=== PATIENT | female | born 1945 | race Caucasian/White ===

== ENCOUNTER 2016-11-20 13:48 | Emergency (ER) | payer MEDICARE, OTHER ==
[2016-11-20] MEDS ORDERED: IBUPROFEN 800 MG TABLET PO STA (14:15)
[2016-11-20] MEDS ORDERED: IBUPROFEN 800 MG TABLET PO ONE (14:31)
[2016-11-20] MEDS ORDERED: NITROFURANTOIN MACRO 100 MG CAPSULE PO STA (14:46)
[2016-11-20] MEDS ORDERED: NITROFURANTOIN MACRO 100 MG CAPSULE PO ONE (14:52)
[2016-11-20] MEDS ORDERED: cefTRIAXone 1 GM in SODIUM CHLORIDE 0.9% MINIBAG 100 ML IV STA (15:24)
[2016-11-20] MEDS ORDERED: SODIUM CHLORIDE 0.9% 1,000 ML IV ONE (15:24)
[2016-11-20] MEDS ORDERED: cefTRIAXone 1 GM VIAL ONE (15:49)
== END 2016-11-20 16:42 | disposition home or self-care (01) ==
DX: N39.0 Urinary tract infection, site not specified (principal); E78.00 Pure hypercholesterolemia, unspecified; Z87.891 Personal history of nicotine dependence
CPT/HCPCS: 36415; 80053; 81001; 83605; 83690; 85025; 87077; 87086; 87181; 96365; 99283; 99284; A9270

== ENCOUNTER 2016-11-28 15:24 | Outpatient (CLI) | payer MEDICARE, OTHER | END 2016-11-28 15:25 | disposition home or self-care (01) | DX: N12 Tubulo-interstitial nephritis, not specified as acute or chronic (principal) ==

== ENCOUNTER 2016-12-19 13:30 | Outpatient (CLI) | payer MEDICARE, OTHER | END 2016-12-19 13:31 | disposition home or self-care (01) | DX: M85.89 Other specified disorders of bone density and structure, multiple sites (principal) ==

== ENCOUNTER 2017-01-27 10:14 | Outpatient (CLI) | payer MEDICARE, OTHER ==
--- NOTE | 2017-01-28 12:53 | Mammography Report ---
DIGITAL SCREENING MAMMOGRAM: 01/27/2017 CLINICAL INDICATION: A 71-year-old for screening. COMPARISON: 12/2015, 11/2014, 08/2013, 06/2012, 06/2011, 03/2010, 03/2009, 03/2008. TECHNIQUE: Routine CC and MLO projections were obtained of the breasts. FINDINGS: The breasts again demonstrate fatty replacement bilaterally. Coarse and punctate, typical ly benign calcifications are present. No suspicious masses, clustered microcalcifications, or region s of architectural distortion are identified. IMPRESSION: BENIGN FINDINGS. RECOMMENDATION: Routine annual screening unless otherwise clinically indicated. BIRADS CATEGORY 2 - BENIGN FINDINGS. STANDARD QUALIFYING STATEMENTS 1. This examination was reviewed with the aid of Computer-Aided Detection (CAD). 2. A negative or benign imaging report should not delay biopsy if clinically suspicious findings are present. Consider surgical consultation if warranted. More than 5% of cancers are not identified by i maging. 3. Dense breasts may obscure an underlying neoplasm. JOB #: [id number] EXT JOB #:[id number]
== END 2017-01-27 10:15 | disposition home or self-care (01) ==
LOC: DI.N 10:14
PROVIDERS: ATTEND Physician Assistant Medical
DX: Z12.31 Encounter for screening mammogram for malignant neoplasm of breast (principal)
CPT/HCPCS: 77067

== ENCOUNTER 2017-02-03 08:03 | Outpatient (CLI) | payer MEDICARE, OTHER ==
[2017-02-03 13:39] LABS: ALBUMIN/GLOBULIN RATIO 1.3 (1.0-2.2); BILIRUBIN,TOTAL 0.6 mg/dL (0.2-1.0); BUN - BLOOD UREA NITROGEN 16 mg/dL (6-20); CALCIUM 9.2 mg/dL (8.5-10.3); CARBON DIOXIDE - CO2 24 mmol/L (21-32); CHLORIDE 106 mmol/L (101-111); CHOL/HDL RATIO 2.9 (<4.4); CHOLESTEROL 167 mg/dL; GFR - MDRD 55 (>89); GLUCOSE 123 mg/dL (70-100); HDL CHOLESTEROL 58 mg/dL; POTASSIUM 4.2 mmol/L (3.5-5.0); SODIUM 139 mmol/L (135-145); TOTAL PROTEIN 6.9 g/dL (6.7-8.2); TRIGLYCERIDES 255 mg/dL; VLDL CHOLESTEROL 51 mg/dL
== END 2017-02-03 08:04 | disposition home or self-care (01) ==
LOC: LAB.WCP 08:03
PROVIDERS: ATTEND Physician Assistant Medical
DX: E78.5 Hyperlipidemia, unspecified (principal)
CPT/HCPCS: 36415; 80053; 80061

== ENCOUNTER 2017-05-18 07:53 | Outpatient (CLI) | payer MEDICARE, OTHER ==
[2017-05-18 15:03] LABS: HEMOGLOBIN A1C 0.48 g/dL
== END 2017-05-18 07:54 | disposition home or self-care (01) ==
LOC: LAB.WCP 07:53
PROVIDERS: ATTEND Physician Assistant Medical
DX: R73.9 Hyperglycemia, unspecified (principal)
CPT/HCPCS: 36415; 80048; 83036

== ENCOUNTER 2017-11-25 08:19 | Outpatient (CLI) | payer MEDICARE, OTHER ==
[2017-11-25 12:52] LABS: BASOPHILS % (AUTO) 0.4 %; EOSINOPHILS # (AUTO) 0.2 10^3/uL (0.0-0.7); EOSINOPHILS % (AUTO) 4.2 %; LYMPHOCYTES # (AUTO) 1.8 10^3/uL (1.5-3.5); LYMPHOCYTES % (AUTO) 29.5 %; MEAN CORPUSCULAR HEMOGLOBIN 26.8 pg (27.0-31.0); MEAN CORPUSCULAR HGB CONC 32.7 g/dL (32.0-36.0); MEAN PLATELET VOLUME 8.3 fL (7.9-10.8); MONOCYTES # (AUTO) 0.6 10^3/uL (0.0-1.0); MONOCYTES % (AUTO) 10.9 %; NEUTROPHILS # (AUTO) 3.3 10^3/uL (1.5-6.6); PLT - PLATELET COUNT 250 10^3/uL (130-450); RED BLOOD COUNT 4.49 10^6/uL (4.20-5.40); RED CELL DISTRIBUTION WIDTH 16.4 % (12.0-15.0); WHITE BLOOD COUNT 5.9 x10^3/uL (4.8-10.8)
[2017-11-25 12:56] LABS: ALBUMIN 3.6 g/dL (3.2-5.5); ALBUMIN/GLOBULIN RATIO 1.3 (1.0-2.2); ALKALINE PHOSPHATASE 70 IU/L (42-121); ALT ALANINE AMINOTRANSFERASE 19 IU/L (10-60); AST ASPARTATE AMINOTRANSFERASE 20 IU/L (10-42); BILIRUBIN,TOTAL 0.4 mg/dL (0.2-1.0); BUN - BLOOD UREA NITROGEN 18 mg/dL (6-20); CALCIUM 8.4 mg/dL (8.5-10.3); CARBON DIOXIDE - CO2 25 mmol/L (21-32); CHLORIDE 105 mmol/L (101-111); CHOL/HDL RATIO 2.8 (<4.4); CHOLESTEROL 170 mg/dL; GFR - MDRD 54 (>89); GLUCOSE 110 mg/dL (70-100); HDL CHOLESTEROL 60 mg/dL; LDL CHOLESTEROL,CALCULATED 71 mg/dL; LDL/HDL RATIO 1.2 (<4.4); SODIUM 138 mmol/L (135-145); TOTAL PROTEIN 6.4 g/dL (6.7-8.2); VLDL CHOLESTEROL 39 mg/dL
== END 2017-11-25 08:20 | disposition home or self-care (01) ==
LOC: LAB.WCP 08:19
PROVIDERS: ATTEND Physician Assistant Medical
DX: E78.5 Hyperlipidemia, unspecified (principal); I10 Essential (primary) hypertension
CPT/HCPCS: 36415; 80053; 80061; 83721; 85025

== ENCOUNTER 2018-02-16 06:11 | Day surgery (SDC) | payer MEDICARE, OTHER ==
[2018-02-16] MEDS ORDERED: LACTATED RINGERS 1,000 ML IV ONE (06:54)
[2018-02-16] MEDS ORDERED: GLUCAGON 1 MG/ML VIAL ONE (07:30)
[2018-02-16] MEDS ORDERED: MIDAZOLAM 2 MG/2 ML VIAL IVP ONE (07:30)
[2018-02-16] MEDS ORDERED: fentaNYL 250 MCG/5 ML VIAL IVP ONE (07:30)
[2018-02-16 08:49] VITALS: BP 116/67
== END 2018-02-16 06:12 | disposition home or self-care (01) ==
LOC: SDS 06:11
PROVIDERS: ATTEND Surgery
PROC: 3E0H8GC Introduction of Other Therapeutic Substance into Lower GI, Via Natural or Artificial Opening Endoscopic (ICD-10-PCS; 2018-02-16)
PROC: 0DBN8ZZ Excision of Sigmoid Colon, Via Natural or Artificial Opening Endoscopic (ICD-10-PCS; principal; 2018-02-16 07:30)
DX: Z12.11 Encounter for screening for malignant neoplasm of colon (principal); D12.5 Benign neoplasm of sigmoid colon; K57.30 Diverticulosis of large intestine without perforation or abscess without bleeding; D17.5 Benign lipomatous neoplasm of intra-abdominal organs; I10 Essential (primary) hypertension; K21.9 Gastro-esophageal reflux disease without esophagitis; F32.9 Major depressive disorder, single episode, unspecified
CPT/HCPCS: 45381; 45384; J3010; J7120; 88305

== ENCOUNTER 2018-02-23 10:04 | Outpatient (CLI) | payer MEDICARE, OTHER ==
--- NOTE | 2018-02-25 13:36 | Mammography Report ---
Procedure Date: 02/23/2018 Accession Number: [id number] / [id number] Procedure: MGN - Screening Mammo Dig Bilat CPT Code: FULL RESULT: EXAM: Screening Mammo Dig Bilat DATE: 02/23/2018 10:19 AM CLINICAL HISTORY: 72-year-old for screening TECHNIQUE: Bilateral CC and MLO views were obtained. COMPARISON: 01/27/2017, 12/31/2015, 11/27/2014, 08/30/2013, 07/16/2012, 06/25/2011, 04/09/2010 FINDINGS: The breasts demonstrate diffuse fatty replacement bilaterally. Coarse and punctate, typically benign calcifications are present. No suspicious masses, clustered microcalcifications, or regions of architectural distortion are identified. IMPRESSION: Benign findings RECOMMENDATION: Routine annual screening unless otherwise clinically indicated. BIRADS CATEGORY 2: Benign findings STANDARD QUALIFYING STATEMENTS: 1. This examination was reviewed with the aid of Computer-Aided Detection (CAD). 2. A negative or benign imaging report should not delay biopsy if clinically suspicious findings are present. Consider surgical consultation if warrented. More than 5% of cancers are not identified by imaging. 3. Dense breasts may obscure an underlying neoplasm.
== END 2018-02-23 10:05 | disposition home or self-care (01) ==
LOC: DI.N 10:04
PROVIDERS: ATTEND Physician Assistant Medical
DX: Z12.31 Encounter for screening mammogram for malignant neoplasm of breast (principal)
CPT/HCPCS: 77067

== ENCOUNTER 2018-06-21 07:32 | Outpatient (CLI) | payer MEDICARE, OTHER ==
[2018-06-21 12:29] LABS: ALBUMIN 3.7 g/dL (3.2-5.5); ALBUMIN/GLOBULIN RATIO 1.2 (1.0-2.2); ALKALINE PHOSPHATASE 85 IU/L (42-121); ALT ALANINE AMINOTRANSFERASE 21 IU/L (10-60); AST ASPARTATE AMINOTRANSFERASE 22 IU/L (10-42); BILIRUBIN,TOTAL 0.7 mg/dL (0.2-1.0); BUN - BLOOD UREA NITROGEN 14 mg/dL (6-20); CALCIUM 8.8 mg/dL (8.5-10.3); CARBON DIOXIDE - CO2 26 mmol/L (21-32); CHLORIDE 105 mmol/L (101-111); CHOL/HDL RATIO 2.7 (<4.4); CHOLESTEROL 156 mg/dL; CREATININE 0.9 mg/dL (0.4-1.0); GFR - MDRD 61 (>89); GLUCOSE 116 mg/dL (70-100); HDL CHOLESTEROL 57 mg/dL; LDL CHOLESTEROL,CALCULATED 44 mg/dL; LDL/HDL RATIO 0.8 (<4.4); SODIUM 139 mmol/L (135-145); TOTAL PROTEIN 6.7 g/dL (6.7-8.2); VLDL CHOLESTEROL 55 mg/dL
== END 2018-06-21 07:33 | disposition home or self-care (01) ==
LOC: LAB.WCP 07:32
PROVIDERS: ATTEND Physician Assistant Medical
DX: E78.5 Hyperlipidemia, unspecified (principal)
CPT/HCPCS: 36415; 80053; 80061; 83721

== ENCOUNTER 2019-01-25 08:00 | Outpatient (CLI) | payer MEDICARE, OTHER ==
[2019-01-25 12:31] LABS: BASOPHILS # (AUTO) 0.1 10^3/uL (0.0-0.1); BASOPHILS % (AUTO) 0.9 %; EOSINOPHILS # (AUTO) 0.2 10^3/uL (0.0-0.7); EOSINOPHILS % (AUTO) 2.9 %; HGB - HEMOGLOBIN 12.7 g/dL (12.0-16.0); LYMPHOCYTES # (AUTO) 1.6 10^3/uL (1.5-3.5); LYMPHOCYTES % (AUTO) 27.7 %; MEAN CORPUSCULAR HEMOGLOBIN 29.5 pg (27.0-31.0); MEAN CORPUSCULAR HGB CONC 32.7 g/dL (32.0-36.0); MEAN CORPUSCULAR VOLUME 90.1 fL (81.0-99.0); MEAN PLATELET VOLUME 8.9 fL (7.9-10.8); MONOCYTES # (AUTO) 0.5 10^3/uL (0.0-1.0); MONOCYTES % (AUTO) 9.1 %; NEUTROPHILS # (AUTO) 3.4 10^3/uL (1.5-6.6); NEUTROPHILS % (AUTO) 59.4 %; PLT - PLATELET COUNT 279 10^3/uL (130-450); RED BLOOD COUNT 4.32 10^6/uL (4.20-5.40); RED CELL DISTRIBUTION WIDTH 13.3 % (12.0-15.0); WHITE BLOOD COUNT 5.7 x10^3/uL (4.8-10.8)
[2019-01-25 12:37] LABS: ALBUMIN/GLOBULIN RATIO 1.5 (1.0-2.2); ALKALINE PHOSPHATASE 77 IU/L (42-121); ALT ALANINE AMINOTRANSFERASE 16 IU/L (10-60); AST ASPARTATE AMINOTRANSFERASE 22 IU/L (10-42); BILIRUBIN,TOTAL 0.6 mg/dL (0.2-1.0); BUN - BLOOD UREA NITROGEN 14 mg/dL (6-20); CARBON DIOXIDE - CO2 23 mmol/L (21-32); CHLORIDE 106 mmol/L (101-111); CHOL/HDL RATIO 2.7 (<4.4); CHOLESTEROL 149 mg/dL; CREATININE 0.9 mg/dL (0.4-1.0); GFR - MDRD 61 (>89); GLUCOSE 111 mg/dL (70-100); HDL CHOLESTEROL 56 mg/dL; LDL CHOLESTEROL,CALCULATED 64 mg/dL; LDL/HDL RATIO 1.1 (<4.4); SODIUM 139 mmol/L (135-145); TOTAL PROTEIN 6.7 g/dL (6.7-8.2); VLDL CHOLESTEROL 29 mg/dL
== END 2019-01-25 08:01 | disposition home or self-care (01) ==
LOC: LAB.WCP 08:00
PROVIDERS: ATTEND Physician Assistant Medical
DX: E78.5 Hyperlipidemia, unspecified (principal); I10 Essential (primary) hypertension
CPT/HCPCS: 36415; 80053; 80061; 83721; 85025

== ENCOUNTER 2019-03-09 08:47 | Outpatient (CLI) | payer MEDICARE, OTHER ==
--- NOTE | 2019-03-09 10:15 | Mammography Report ---
Reason: SCREENING MAMMO Procedure Date: 03/09/2019 Accession Number: [id number] / [id number] Procedure: MGN - Screening Mammo Dig Bilat CPT Code: FULL RESULT: EXAM: Screening Mammo Dig Bilat DATE: 03/09/2019 9:22 AM CLINICAL HISTORY: Screening encounter. No reported risk factors. TECHNIQUE: (B) - Bilateral CC and MLO views were obtained. COMPARISON: 02/23/2018 through 11/27/2014. PARENCHYMAL PATTERN: (A) - The breast(s) demonstrate(s) scattered fibroglandular densities. FINDINGS: There are bilateral coarse typically benign calcifications. There are no suspicious masses, calcifications, or areas of distortion. IMPRESSION: Benign findings. BI-RADS category 2. RECOMMENDATION: (ANNUAL) - Recommend routine annual screening mammography. BI-RADS CATEGORY: (2) - Benign Findings. STANDARD QUALIFYING STATEMENTS: 1. This examination was not reviewed with the aid of Computer-Aided Detection (CAD). 2. A negative or benign imaging report should not preclude biopsy if clinically suspicious findings are present. 3. Dense breasts may obscure an underlying neoplasm. 4. This examination was reviewed without the aid of 3D breast imaging (tomosynthesis).
== END 2019-03-09 08:48 | disposition home or self-care (01) ==
LOC: DI.N 08:47
DX: Z12.31 Encounter for screening mammogram for malignant neoplasm of breast (principal)
CPT/HCPCS: 77067

== ENCOUNTER 2019-03-16 08:50 | Outpatient (CLI) | payer MEDICARE, OTHER ==
--- NOTE | 2019-03-17 09:05 | DEXA Report ---
Reason: BONE DISEASE Procedure Date: 03/16/2019 Accession Number: [id number] / [id number] Procedure: DEX - Dexa Spine and/or Hip CPT Code: FULL RESULT: EXAM: Dexa Spine and/or Hip DATE: 03/16/2019 9:18 AM CLINICAL HISTORY: BONE DISEASE TECHNIQUE: Dual energy x-ray absorptiometry (DXA) was performed on a eri[employer] System. Regions measured are the AP Spine, femoral neck, and if needed forearm. COMPARISON: 12/19/2016. In accordance with the International Society for Clinical Densitometry (ISCD) guidelines, data from previous exams may be reanalyzed using current recommendations and techniques. This is done to allow a more accurate basis for comparison with the current study. FINDINGS: The data for the lumbar spine is as follows: BMD (g/cm/cm) T-SCORE Z-SCORE REGION L1 0.891 -2.0 -1.0 L2 1.004 -1.6 -0.7 L3 1.069 -1.1 -0.1 L4 1.036 -1.4 -0.4 TOTAL 1.004 -1.5 -0.5 NOTE: All evaluable vertebrae are used for classification The data for the hip is as follows: BMD (g/cm/cm) T-SCORE Z-SCORE REGION Neck 0.650 -2.8 -1.4 TOTAL 0.778 -1.8 -0.7 NOTE: The femoral neck or total proximal femur, whichever is lowest, is used for classification. DXA RESULTS SUMMARY: Spine SCAN DATE AGE BMD CHANGE VS CHANGE VS PREVIOUS PREVIOUS % 2/16/2019 [age] 1.004 0.036* 3.7* 12/19/2016 [age] 0[age]968 * Denotes significant change at the 95% confidence level. Denotes dissimilar scan types or analysis methods. DXA RESULTS SUMMARY: Hip SCAN DATE AGE BMD CHANGE VS CHANGE VS PREVIOUS PREVIOUS % 2/16/2019 [age] 0.778 -0.014 -1.8 12/19/2016 [age] 0.792 * Denotes significant change at the 95% confidence level. Denotes dissimilar scan types or analysis methods. IMPRESSION: THE WHO CLASSIFICATION BASED ON THE INTERNATIONAL REFERENCE STANDARD IS OSTEOPOROSIS. THE FRACTURE RISK IS HIGH. RECOMMENDATION: Patients with diagnosis of osteoporosis or osteopenia should have regular bone mineral density assessment. For those eligible for Medicare, routine testing is allowed once every 2 years. Testing frequency can be increased for patients who have rapidly progressing disease or for those who are receiving medical therapy to restore bone mass. COMMENT: World Health Organization (WHO) definitions for osteoporosis and osteopenia: NORMAL BMD: T-score at -1.0 or higher, fracture risk is low OSTEOPENIA BMD: T-score between -1.0 and -2.5, fracture risk is increased. OSTEOPOROSIS BMD: T-score at -2.5 or lower, fracture risk is high. National Osteoporosis Foundation recommends: 1. Obtain adequate dietary calcium (at least 1200 mg per day) and vitamin D (400-800 international units per day). 2. Participate, as appropriate, in regular weightbearing and muscle-strengthening exercise. 3. Avoid tobacco use and reduce alcohol and caffeine intake. 4. For more detailed information see the website at www.NOF.org.
== END 2019-03-16 08:51 | disposition home or self-care (01) ==
LOC: DI 08:50
PROVIDERS: ATTEND Physician Assistant Medical
DX: M81.0 Age-related osteoporosis without current pathological fracture (principal)
CPT/HCPCS: 77080

== ENCOUNTER 2020-03-08 09:14 | Outpatient (CLI) | payer MEDICARE, OTHER ==
[2020-03-08 12:33] LABS: ALBUMIN 4.6 g/dL (3.2-5.5); ALBUMIN/GLOBULIN RATIO 1.8 (1.0-2.2); ALKALINE PHOSPHATASE 62 IU/L (42-121); ALT ALANINE AMINOTRANSFERASE 19 IU/L (10-60); AST ASPARTATE AMINOTRANSFERASE 22 IU/L (10-42); BILIRUBIN,TOTAL 0.7 mg/dL (0.2-1.0); BUN - BLOOD UREA NITROGEN 18 mg/dL (6-20); CALCIUM 8.8 mg/dL (8.5-10.3); CARBON DIOXIDE - CO2 26 mmol/L (21-32); CHLORIDE 105 mmol/L (101-111); CHOL/HDL RATIO 2.5 (<4.4); CHOLESTEROL 168 mg/dL; CREATININE 1.1 mg/dL (0.4-1.0); GLUCOSE 119 mg/dL (70-100); HDL CHOLESTEROL 67 mg/dL; LDL CHOLESTEROL,CALCULATED 71 mg/dL; LDL/HDL RATIO 1.1 (<4.4); SODIUM 137 mmol/L (135-145); TOTAL PROTEIN 7.2 g/dL (6.7-8.2); VLDL CHOLESTEROL 30 mg/dL
[2020-03-08 12:46] LABS: HEMOGLOBIN A1C 0.63 g/dL
== END 2020-03-08 23:59 | disposition home or self-care (01) ==
LOC: LAB.WCP 09:14
PROVIDERS: ATTEND Physician Assistant Medical
DX: E78.5 Hyperlipidemia, unspecified (principal); R73.9 Hyperglycemia, unspecified
CPT/HCPCS: 36415; 80053; 80061; 83036; 83721

== ENCOUNTER 2020-05-04 09:22 | Outpatient (CLI) | payer MEDICARE, OTHER ==
--- NOTE | 2020-05-07 12:08 | Mammography Report ---
BILATERAL DIGITAL SCREENING MAMMOGRAM 3D/2D: 05/04/2020 CLINICAL: Routine screening. Comparison is made to exams dated: 03/09/2019 mammogram, 02/23/2018 mammogram, and 01/27/2017 mammogram - [facility]. There are scattered fibroglandular elements in both breasts. There are benign calcifications in both breasts. No significant masses, calcifications, or other findings are seen in either breast. There has been no significant interval change. IMPRESSION: BENIGN There is no mammographic evidence of malignancy. A 1 year screening mammogram is recommended. This exam was interpreted at Station ID: [id number]. NOTE: For mammograms, a report in lay terms will be sent to the patient. Approximately 15% of breast malignancies will not be visualized mammographically. In the management of a palpable breast mass, a negative mammogram must not discourage biopsy of a clinically suspicious lesion. Electronically Signed By: Tj Keith M.D. ddp/penrad:05/04/2020 10:32:30 ACR BI-RADS Category 2: Benign Finding(s) 3342F PARENCHYMAL PATTERN: (A) - The breast(s) demonstrate(s) scattered fibroglandular densities. BI-RADS CATEGORY: (2) - 2 RECOMMENDATION: (ANNUAL) - Recommend routine annual screening mammography. [id number] 1 year screening LATERALITY: (B)
== END 2020-05-04 09:23 | disposition home or self-care (01) ==
LOC: DI.N 09:22
DX: Z12.31 Encounter for screening mammogram for malignant neoplasm of breast (principal)
CPT/HCPCS: 77063; 77067

== ENCOUNTER 2020-09-07 08:00 | Outpatient (CLI) | payer MEDICARE, OTHER | END 2020-09-07 23:59 | LOC: LAB.R 08:00 | PROVIDERS: ATTEND Physician Assistant Medical | DX: R10.32 Left lower quadrant pain (principal) | CPT/HCPCS: 87077; 87086; 87181 ==

== ENCOUNTER 2020-09-07 14:59 | Outpatient (CLI) | payer MEDICARE, OTHER ==
[2020-09-07] MEDS ORDERED: IOVERSOL 320 50 ML VIAL ONE (15:17)
[2020-09-07] MEDS ORDERED: IOVERSOL 320 100 ML VIAL IVP ONE (15:17)
[2020-09-07 15:26] LABS: BASOPHILS % (AUTO) 0.4 %; EOSINOPHILS # (AUTO) 0.1 10^3/uL (0.0-0.7); HGB - HEMOGLOBIN 13.9 g/dL (12.0-16.0); LYMPHOCYTES # (AUTO) 2.3 10^3/uL (1.5-3.5); LYMPHOCYTES % (AUTO) 23.5 %; MEAN CORPUSCULAR HEMOGLOBIN 29.8 pg (27.0-31.0); MEAN CORPUSCULAR HGB CONC 31.6 g/dL (32.0-36.0); MEAN CORPUSCULAR VOLUME 94.4 fL (81.0-99.0); MEAN PLATELET VOLUME 9.8 fL (7.9-10.8); MONOCYTES # (AUTO) 0.9 10^3/uL (0.0-1.0); NEUTROPHILS # (AUTO) 6.4 10^3/uL (1.5-6.6); NEUTROPHILS % (AUTO) 65.8 %; PLT - PLATELET COUNT 277 10^3/uL (130-450); RED BLOOD COUNT 4.66 10^6/uL (4.20-5.40); RED CELL DISTRIBUTION WIDTH 13.7 % (12.0-15.0); WHITE BLOOD COUNT 9.7 x10^3/uL (4.8-10.8)
[2020-09-07 15:33] LABS: ALBUMIN 4.2 g/dL (3.2-5.5); ALBUMIN/GLOBULIN RATIO 1.2 (1.0-2.2); BILIRUBIN,TOTAL 0.7 mg/dL (0.2-1.0); CALCIUM 9.2 mg/dL (8.5-10.3); CREATININE 0.9 mg/dL (0.4-1.0); TOTAL PROTEIN 7.7 g/dL (6.7-8.2)
--- NOTE | 2020-09-07 17:28 | CT Report ---
PROCEDURE: Abdomen/Pelvis W INDICATIONS: ABD PAIN, LLQ CONTRAST: IV CONTRAST: Optiray 320 ml: 100 PO CONTRAST: Optiray 320 ml50 TECHNIQUE: After the administration of contrast, 5 mm thick sections acquired from the diaphragms to the sym physis. 5 mm thick coronal and sagittal reformats were acquired. For radiation dose reduction, the following was used: automated exposure control, adjustment of mA and/or kV according to patient size . COMPARISON: None. FINDINGS: Image quality: Excellent. ABDOMEN: Lung bases: Lung bases are clear. Heart size is normal. Solid organs: Liver and spleen are normal in size and enhancement. Gallbladder appears previously r esected Biliary system is non dilated. Pancreas enhances normally. No adrenal nodules. Kidneys de monstrate normal size and enhancement, without right-sided hydronephrosis or nephrolithiasis bilatera lly. There is, however, left-sided mild to moderate hydronephrosis and hydroureter that extends infer iorly to the bladder margin. At the far distal ureter, including the "submucosal tunnel" portion of t he distal left ureter no calculus is seen. There is mild soft tissue prominence in the area of the lo west margin of the ureter at the bladder wall.. Peritoneum and bowel: Bowel loops demonstrate normal wall thickness and caliber. No free fluid or a ir. Nodes and vessels: No retroperitoneal or mesenteric adenopathy by size criteria. Aorta and inferior vena cava are normal in size. Miscellaneous: No ventral hernias. PELVIS: Genitourinary: Bladder wall thickness is normal. Miscellaneous: No inguinal hernias or adenopathy. Bones: No suspicious bony lesions. No vertebral body compression fractures. IMPRESSION: The hydronephrosis and hydroureter on the left is a worrisome finding given the absence of a identified ureteral or bladder calculus. The appearance could be secondary to inflammation from recent passage of a stone but a far distal ureteral urothelial neoplasm remains a potential cause. Pl ease correlate clinically. Follow-up confirmation of resolution of left-sided hydronephrosis is recom mended, generally by ultrasound, and if the obstructive appearance persists urology consultation woul d be recommended to assess for urothelial neoplasm at the distal left ureter. Reviewed by: Jaswinder Polanco MD on 09/07/2020 5:26 PM PST Approved by: Jaswinder Polanco MD on 09/07/2020 5:26 PM PST Station ID: [id number]
== END 2020-09-07 15:00 | disposition home or self-care (01) ==
LOC: DI 14:59
PROVIDERS: ATTEND Physician Assistant Medical
DX: R10.32 Left lower quadrant pain (principal); N13.30 Unspecified hydronephrosis; N13.4 Hydroureter
CPT/HCPCS: 36415; 74177; 80053; 83690; 85025; Q9967; 87086

== ENCOUNTER 2020-10-16 13:49 | Outpatient (CLI) | payer MEDICARE, OTHER ==
--- NOTE | 2020-10-16 16:19 | Ultrasound Report ---
PROCEDURE: Retroperitoneal INDICATIONS: LLQ ABDOMINAL PAIN TECHNIQUE: Real-time scanning was performed of the retroperitoneal organs, with image documentation. COMPARISON: CT abdomen/pelvis 09/07/2020 reviewed.. FINDINGS: Incidental note is made of prominent fatty infiltration throughout the liver. Kidneys: Kidneys are normal in size. Right kidney measures 10.7 cm long; left kidney measures 9.9 c m long. Right renal cortical thickness is 1.6 cm; left renal cortical thickness is 1.4 cm. No solid masses, hydronephrosis, or obstructive nephrolithiasis bilaterally. There is a 5 mm calcification at the lower right kidney collecting system, nonobstructive, and several possible vascular calcificatio ns noted at the renal sinus region on the left. Pancreas: Visualized portions of the pancreas are sonographically normal. Aorta: Visualized aorta is normal in caliber at 3 cm or less. Iliac arteries: Proximal common iliac arteries are normal in caliber at 2.5 cm or less. IVC: Intrahepatic inferior vena cava is patent. Miscellaneous: No free abdominal fluid. Prevoid bladder volume is 354 cc, postvoid residual is 0. N ote is made of bilateral ureteral jets. CT scanning also would allow detection of a ureteral stone. IMPRESSION: A definite source of left lower quadrant pain is not identified. CT scanning may be warranted if dive rticulitis is clinically suspected. Note is made of relatively prominent fatty infiltration throughout the liver. Reviewed by: Jaswinder Polanco MD on 10/16/2020 4:17 PM PST Approved by: Jaswinder Polanco MD on 10/16/2020 4:17 PM PST Station ID: [id number]
== END 2020-10-16 13:50 | disposition home or self-care (01) ==
LOC: DI 13:49
PROVIDERS: ATTEND Physician Assistant Medical
DX: R10.32 Left lower quadrant pain (principal); K76.0 Fatty (change of) liver, not elsewhere classified

== ENCOUNTER 2021-03-28 08:00 | Outpatient (CLI) | payer MEDICARE, OTHER ==
[2021-03-28 13:38] LABS: ALBUMIN 3.8 g/dL (3.2-5.5); ALBUMIN/GLOBULIN RATIO 1.2 (1.0-2.2); ALKALINE PHOSPHATASE 60 IU/L (42-121); ALT ALANINE AMINOTRANSFERASE 17 IU/L (10-60); AST ASPARTATE AMINOTRANSFERASE 18 IU/L (10-42); BILIRUBIN,TOTAL 0.7 mg/dL (0.2-1.0); BUN - BLOOD UREA NITROGEN 17 mg/dL (6-20); CALCIUM 9.3 mg/dL (8.5-10.3); CARBON DIOXIDE - CO2 27 mmol/L (21-32); CHLORIDE 103 mmol/L (101-111); CHOL/HDL RATIO 2.8 (<4.4); CHOLESTEROL 196 mg/dL; GFR - MDRD 54 (>89); GLUCOSE 135 mg/dL (70-100); HDL CHOLESTEROL 69 mg/dL; LDL CHOLESTEROL,CALCULATED 90 mg/dL; LDL/HDL RATIO 1.3 (<4.4); SODIUM 140 mmol/L (135-145); TRIGLYCERIDES 186 mg/dL; VLDL CHOLESTEROL 37 mg/dL
== END 2021-03-28 23:59 | disposition home or self-care (01) ==
LOC: LAB.WCP 08:00
PROVIDERS: ATTEND Physician Assistant Medical
DX: E78.5 Hyperlipidemia, unspecified (principal)
CPT/HCPCS: 36415; 80053; 80061; 83721

== ENCOUNTER 2021-04-03 13:40 | Outpatient (CLI) | payer MEDICARE, OTHER ==
--- NOTE | 2021-04-03 15:32 | XRAY Report ---
PROCEDURE: Knee 3 View LT INDICATIONS: L KNEE PX TECHNIQUE: 3 views of the left knee(s) were acquired. COMPARISON: None. FINDINGS: Bones: No fractures or dislocations. Mild medial compartment joint space loss. Moderate patellofemo ral compartment joint space loss, subcortical cystic change, and marginal spurring. No suspicious bon y lesions. Soft tissues: Trace joint effusion. There are at least 4 amorphous, faint calcifications projecting p osterior and inferior to the knee joint, unlikely to be intra-articular. IMPRESSION: 1. 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 2. Trace, nonspecific joint effusion. 3. No fractures. Reviewed by: Corina Benedict MD on 04/03/2021 3:30 PM PDT Approved by: Corina Benedict MD on 04/03/2021 3:30 PM PDT Station ID: [id number]
== END 2021-04-03 13:41 | disposition home or self-care (01) ==
LOC: DI.N 13:40
PROVIDERS: ATTEND Physician Assistant Medical
DX: M17.12 Unilateral primary osteoarthritis, left knee (principal); M25.462 Effusion, left knee; R73.9 Hyperglycemia, unspecified
CPT/HCPCS: 36415; 83036

== ENCOUNTER 2021-05-21 10:20 | Outpatient (CLI) | payer MEDICARE, OTHER ==
--- NOTE | 2021-05-22 09:36 | Mammography Report ---
BILATERAL DIGITAL SCREENING MAMMOGRAM 3D/2D: 05/21/2021 CLINICAL: Routine screening. Comparison is made to exams dated: 05/04/2020 mammogram, 03/09/2019 mammogram, 02/23/2018 mammogram, 01/27 mammogram, 12/31/2015 mammogram, and 11/27/2014 mammogram - [facility]. There ar e scattered fibroglandular elements in both breasts. There are benign calcifications in both breasts. No significant masses, calcifications, or other findings are seen in either breast. There has been no significant interval change. IMPRESSION: BENIGN There is no mammographic evidence of malignancy. A 1 year screening mammogram is recommended. This exam was interpreted at Station ID: [id number]. NOTE: For mammograms, a report in lay terms will be sent to the patient. Approximately 15% of breast malignancies will not be visualized mammographically. In the management of a palpable breast mass, a negative mammogram must not discourage biopsy of a clinically suspicious lesion. Electronically Signed By: Tj Keith M.D. ddp/penrad:05/21/2021 12:56:34 ACR BI-RADS Category 2: Benign Finding(s) 3342F PARENCHYMAL PATTERN: (A) - The breast(s) demonstrate(s) scattered fibroglandular densities. BI-RADS CATEGORY: (2) - 2 RECOMMENDATION: (ANNUAL) - Recommend routine annual screening mammography. [id number] 1 year screening LATERALITY: (B)
== END 2021-05-21 10:21 | disposition home or self-care (01) ==
LOC: DI.N 10:20
DX: Z12.31 Encounter for screening mammogram for malignant neoplasm of breast (principal)

== ENCOUNTER 2021-05-30 07:00 | Outpatient (CLI) | payer MEDICARE, OTHER | END 2021-05-30 23:59 | disposition home or self-care (01) | LOC: LAB 07:00 | PROVIDERS: ATTEND Family Medicine | DX: R30.0 Dysuria (principal) | CPT/HCPCS: 87077; 87086; 87181 ==

== ENCOUNTER 2022-03-06 08:00 | Outpatient (CLI) | payer MEDICARE, OTHER | END 2022-03-06 08:01 | disposition home or self-care (01) | LOC: LAB.N 08:00 | PROVIDERS: ATTEND Physician Assistant Medical | DX: R30.0 Dysuria (principal) | CPT/HCPCS: 87077; 87086; 87181 ==

== ENCOUNTER 2022-05-03 11:48 | Outpatient (CLI) | payer MEDICARE, OTHER | END 2022-05-03 11:49 | disposition critical access hospital (66) | LOC: EMS 11:48 | DX: R42 Dizziness and giddiness (principal) | CPT/HCPCS: A0425; A0429 ==

== ENCOUNTER 2022-05-03 12:12 | Emergency (ER) | payer MEDICARE, OTHER ==
--- NOTE | 2022-05-03 12:57 | ED Physician Documentation ---
PD HPI FOCAL NEURO - Stated complaint Stated Complaint: VERTIGO - Chief complaint Chief Complaint: Neuro - History obtained from History obtained from: Patient - Additional information Additional information: 77-year-old woman with mild hypertension presents with resolved vertigo. She got out of bed at 8 this morning with it she felt like the room was spinning. And she felt a whooshing sound in her right ear that was not in time with her pulse. At this point the vertigo is gone. She still feels some fullness in the right ear. She denies weakness, numbness, tingling, diplopia, uncoordination. She notes that she saw her eye doctor recently and was having a symptom of a little veil in the inferolateral peripheral vision of her left eye. Her durable medical equipment repairer opined that her retina was normal and recommended check of her carotid arteries. Review of Systems Ten Systems: 10 systems reviewed and negative Constitutional: denies: Fever, Chills Ears: reports: Reviewed and negative Nose: reports: Reviewed and negative Throat: reports: Reviewed and negative Cardiac: reports: Reviewed and negative Respiratory: reports: Reviewed and negative PD PAST MEDICAL HISTORY - Past Medical History Cardiovascular: None Respiratory: None Endocrine/Autoimmune: None GI: None : None HEENT: None Psych: None Musculoskeletal: None Derm: None - Past Surgical History Past Surgical History: Yes General: Cholecystectomy /BOAT BUILDER: section - Present Medications Home Medications: Ambulatory Orders Medication Instructions Recorded Confirmed Simvastatin [Zocor] 0 mg PO DAILY 11/20/16 02/16/18 buPROPion [Wellbutrin Xl] 0 mg PO DAILY 11/20/16 11/20/16 Aspirin 325 mg PO DAILY 02/16/18 02/16/18 - Allergies Allergies/Adverse Reactions: Allergies Allergy/AdvReac Type Severity Reaction Status Date / Time No Known Drug Allergies Allergy Verified 05/03/22 12:25 - Social History Does the pt smoke?: No Smoking Status: Former smoker Does the pt drink ETOH?: No Does the pt have substance abuse?: No - Immunizations Immunizations are current?: Yes PD ED PE NORMAL - Vitals Vital signs reviewed: Yes - General General: Alert and oriented X 3, No acute distress - HEENT HEENT: PERRL, EOMI, Other (I am unable to elicit any nystagmus or abnormality of her extraocular movements. There is some noninfected fluid behind the right eardrum, left TM is normal.) - Neck Neck: Supple, no meningeal sign, No bony TTP, No bruit - Cardiac Cardiac: RRR, No murmur - Respiratory Respiratory: No respiratory distress, Clear bilaterally - Abdomen Abdomen: Non tender - Back Back: No CVA TTP, No spinal TTP - Derm Derm: Normal color, Warm and dry - Neuro Neuro: Alert and oriented X 3, Normal speech, Other (Normal ypxjff-[id number]-kxzh and fefu-ri-infj testing) Eye Opening: Spontaneous Motor: Obeys Commands Verbal: Oriented GCS Score: 15 - Psych Psych: Normal mood, Normal affect NIHSS - Time Time: 12:50 - Level of Consciousness Level of consciousness: (0) Alert, Keenly responsive LOC Questions: (0) Answers both Q's correct LOC Commands: (0) Performs both correctly - Gaze Best Gaze: (0) Normal - Visual Visual: (0) No loss - Facial Palsy Facial Palsy: (0) Normal, symmetrical movement - Motor Arms (both separate) Motor Arm (right): (0) No drift Motor Arm (left): (0) No drift - Motor Legs (both separate) Motor Leg (right): (0) No drift Motor Leg (left): (0) No drift - Limb Ataxia Limb Ataxia: (0) Absent - Sensory Sensory: (0) Normal - Best Language Best Language: (0) No aphasia - Dysarthria Dysarthria: (0) Normal - Extinction and Inattention (formally neg Extinction and inattention: (0) No abnormality - Total Score/Results Total Score/Result: 0 Results - Vitals Vitals: Vital Signs - 24 hr 05/03/22 05/03/22 12:18 15:32 Temperature 37.0 C 37.0 C Heart Rate 77 76 Respiratory 18 16 Rate Blood Pressure 141/80 H 138/80 H O2 Saturation 96 96 Oxygen O2 Source Room air - Labs Labs: Laboratory Tests 05/03/22 05/03/22 13:02 13:02 WBC 6.6 RBC 4.49 Hgb 10.3 L Hct 34.3 L MCV 76.4 L MCH 22.9 L MCHC 30.0 L RDW 17.1 H Plt Count 345 MPV 9.6 Neut # (Auto) 4.5 Lymph # (Auto) 1.5 Dukes # (Auto) 0.5 Eos # (Auto) 0.1 Baso # (Auto) 0.0 Absolute Nucleated RBC 0.00 Nucleated RBC % 0.0 Sodium 140 Potassium 4.4 Chloride 107 Carbon Dioxide 26 Anion Gap 7.0 BUN 17 Creatinine 0.9 Estimated GFR (MDRD) 61 L Glucose 140 H Calcium 8.9 PD MEDICAL DECISION MAKING - ED course ED course: 77-year-old woman with resolved vertigo associated with some right ear symptoms suggestive of a peripheral cause. That said she did not note any change with movement of her head while she was symptomatic. Given the recent suggestion that she have her carotids checked, CT angiography of the head and neck were done and normal. She was relatively asymptomatic here. Departure - Departure Disposition: 01 Home, Self Care Clinical Impression: Vertigo Anemia Qualifiers: Anemia type: unspecified type Qualified Code(s): D64.9 - Anemia, unspecified Serous otitis media Qualifiers: Chronicity: acute Laterality: right Recurrence: non-recurrent Qualified Code(s): H65.01 - Acute serous otitis media, right ear Condition: Good Record reviewed to determine appropriate education?: Yes Instructions: ED Vertigo Unspecified Comments: You are found today to be mildly anemic, this requires follow-up with your primary care physician for evaluation. The CT scans of your head and neck show no abnormality of the brain and no blockages or abnormalities of the blood vessels in your head or neck leading to your brain. Drink plenty of fluid and return if worse, Call your doctor to arrange a follow-up appointment, make the next available appointment. In the interim, return anytime if worse or if new symptoms develop. Discharge Date/Time: 05/03/22 15:32
[2022-05-03 13:11] LABS: BASOPHILS % (AUTO) 0.6 %; EOSINOPHILS # (AUTO) 0.1 10^3/uL (0.0-0.7); EOSINOPHILS % (AUTO) 1.5 %; HCT - HEMATOCRIT 34.3 % (37.0-47.0); HGB - HEMOGLOBIN 10.3 g/dL (12.0-16.0); LYMPHOCYTES # (AUTO) 1.5 10^3/uL (1.5-3.5); LYMPHOCYTES % (AUTO) 22.2 %; MEAN CORPUSCULAR HEMOGLOBIN 22.9 pg (27.0-31.0); MEAN CORPUSCULAR VOLUME 76.4 fL (81.0-99.0); MEAN PLATELET VOLUME 9.6 fL (7.9-10.8); MONOCYTES # (AUTO) 0.5 10^3/uL (0.0-1.0); MONOCYTES % (AUTO) 7.1 %; NEUTROPHILS # (AUTO) 4.5 10^3/uL (1.5-6.6); NEUTROPHILS % (AUTO) 68.4 %; PLT - PLATELET COUNT 345 10^3/uL (130-450); RED BLOOD COUNT 4.49 10^6/uL (4.20-5.40); RED CELL DISTRIBUTION WIDTH 17.1 % (12.0-15.0); WHITE BLOOD COUNT 6.6 x10^3/uL (4.8-10.8)
[2022-05-03 13:17] LABS: CALCIUM 8.9 mg/dL (8.5-10.3); CREATININE 0.9 mg/dL (0.4-1.0); POTASSIUM 4.4 mmol/L (3.5-5.0)
--- NOTE | 2022-05-03 14:22 | CT Report ---
PROCEDURE: ANGIO HEAD W/WO INDICATIONS: vertigo CONTRAST: IV CONTRAST: Optiray 320 ml: 80 PO CONTRAST: *NO PO CONTRAST TECHNIQUE: Precontrast 4.5 mm thick angled axial sections acquired from the foramen magnum to the vertex. Afte r the administration of intravenous contrast, 1 mm thick sections acquired through the [place] of [place] is. Postcontrast 4.5 mm thick sections then re-acquired from the foramen magnum to the vertex. 3-di mensional xuwplgo-muisbbxaj-nuceglcyrx (MIP) and/or volume rendering reformats were acquired of the c entral intracranial vasculature. For radiation dose reduction, the following was used: automated ex posure control, adjustment of mA and/or kV according to patient size. COMPARISON: None. FINDINGS: Image quality: Excellent. Anterior circulation: Intracranial internal carotid arteries demonstrate trace atherosclerotic calci fications without significant stenosis.. The flow within the paired anterior cerebral arteries is no rmal and symmetric. The flow within the middle cerebral arteries is normal and symmetric. The anter ior communicating artery is seen. No aneurysms are seen. Posterior circulation: Visualized portions of the vertebral arteries demonstrate normal caliber, and join to form a normal appearing basilar artery. A hypoplastic P1 segment of the right posterior cer ebral artery is seen with a dominant right posterior communicating artery, a normal variant. Flow wit hin the posterior cerebral arteries is otherwise normal and symmetric. No aneurysms are seen. CSF spaces: Ventricles are normal in size and shape. Basal cisterns are patent. No extra-axial flu id collections. Brain: No midline shift. No acute intracranial hemorrhage or mass effect. Baldwin-white matter interfa ce appears intact. Skull and face: Calvarium and facial bones appear intact, without suspicious lesions. Sinuses: Visualized sinuses and mastoids are clear. IMPRESSION: 1.No acute intracranial abnormality. 2.No hemodynamically significant arterial stenosis or occlusion within the major intracranial vessels . Reviewed by: Joe Harris MD on 05/03/2022 1:20 PM ANA Approved by: Joe Harris MD on 05/03/2022 1:20 PM ANA Station ID: [id number]
--- NOTE | 2022-05-03 14:26 | CT Report ---
PROCEDURE: ANGIO NECK W INDICATIONS: vertigo CONTRAST: IV CONTRAST: Optiray 320 ml: 80 PO CONTRAST: *NO PO CONTRAST TECHNIQUE: After the administration of intravenous contrast, 1.5 mm axial sections acquired from the aortic arch to the [place] of [place]. Coronal 3-D maximum intensity projection (MIP) and/or volume rendering ref ormats were then performed. For radiation dose reduction, the following was used: automated exposur e control, adjustment of mA and/or kV according to patient size. COMPARISON: None. FINDINGS: Image quality: Excellent. Carotid system: The left common carotid artery arises from the brachiocephalic trunk, a normal anato fred variant. The great vessels demonstrate a conventional anatomy as they arise from the aortic arch. The origins of the common carotid arteries appear patent. The common carotid arteries demonstrate normal calibers and courses. The bifurcation regions appear normal bilaterally. The internal caroti d arteries demonstrate normal caliber and course. Posterior circulation: Atherosclerotic calcifications are seen at the origin of the right vertebral artery without significant stenosis. The origins of the left vertebral artery appears patent. The mo re superior portions of the vertebral arteries demonstrate normal course and caliber. They join to f orm a normal appearing basilar artery. Soft tissues: Visualized neck soft tissues demonstrate no suspicious abnormalities. The thyroid is normal in size and there are no incidental findings. Bones: No suspicious bony lesions. Multilevel degenerative changes are seen in the spine. IMPRESSION: No hemodynamically significant stenosis or occlusion of the major arteries of the neck. The estimate of stenosis included in the report of the imaging study was calculated using the NASCET method Reviewed by: Joe Harris MD on 05/03/2022 1:25 PM ANA Approved by: Joe Harris MD on 05/03/2022 1:25 PM ANA Station ID: [id number]
[2022-05-03 15:33] VITALS: BP 138/80
== END 2022-05-03 15:32 | disposition home or self-care (01) ==
LOC: ED 12:12
DX: H65.01 Acute serous otitis media, right ear (principal); D64.9 Anemia, unspecified; I10 Essential (primary) hypertension; Z87.891 Personal history of nicotine dependence
CPT/HCPCS: 36415; 70496; 70498; 80048; 85025; 99282; 99284; Q9967

== ENCOUNTER 2022-05-22 08:00 | Outpatient (CLI) | payer MEDICARE, OTHER | END 2022-05-22 23:59 | disposition home or self-care (01) | LOC: LAB 08:00 | PROVIDERS: ATTEND Physician Assistant Medical | DX: R30.0 Dysuria (principal) | CPT/HCPCS: 87086; 87181 ==

== ENCOUNTER 2022-06-05 08:00 | Outpatient (CLI) | payer MEDICARE, OTHER ==
[2022-06-05 18:55] LABS: FECAL OCCULT BLOOD (FIT) NEGATIVE (NEGATIVE)
== END 2022-06-05 23:59 | disposition home or self-care (01) ==
LOC: LAB.R 08:00
PROVIDERS: ATTEND Physician Assistant Medical
DX: D50.9 Iron deficiency anemia, unspecified (principal)
CPT/HCPCS: 82274

== ENCOUNTER 2022-06-16 07:55 | Outpatient (CLI) | payer MEDICARE, OTHER ==
--- NOTE | 2022-06-16 21:05 | DEXA Report ---
PROCEDURE: Dexa Spine and/or Hip INDICATIONS: OSTEOPENIA TECHNIQUE: Dual energy x-ray absorptiometry (DXA) was performed on a Verifico System. Regions measur ed are the AP Spine, femoral neck, and if needed forearm. COMPARISON: DEXA 03/16/2019 FINDINGS: Lumbar Spine: Bone Mineral Density 1.07 g/cm/cm,T score -0.9, compared to -1.5 Left Hip: Bone Mineral Density 0.793 g/cm/cm,T score -1.7, compared to -1.8 Left Femoral Neck: Bone Mineral Density 0.637 g/cm/cm, T score -2.9, compared to -2.8 (T score greater or equal to -1.0: NORMAL) (T score from -1.1 to -2.4: OSTEOPENIA) (T score less than or equal to -2.5 to: OSTEOPOROSIS) Impression: Minimal progression of osteoporosis in the left femoral neck. Improved bone mineral density within th e lumbar spine. Patients with diagnosis of osteoporosis or osteopenia should have regular bone mineral density assess ment. For those eligible for Medicare, routine testing is allowed once every 2 years. Testing frequ ency can be increased for patients who have rapidly progressing disease or for those who are receivin g medical therapy to restore bone mass. Reviewed by: Karina Mcintyre MD on 06/16/2022 9:03 PM PDT Approved by: Karina Mcintyre MD on 06/16/2022 9:03 PM PDT Station ID: [id number]
== END 2022-06-16 07:56 | disposition home or self-care (01) ==
LOC: DI 07:55
PROVIDERS: ATTEND Family Medicine
DX: M81.0 Age-related osteoporosis without current pathological fracture (principal)

== ENCOUNTER 2022-10-02 17:15 | Outpatient (CLI) | payer MEDICARE, OTHER | END 2022-10-02 17:30 | disposition home or self-care (01) | LOC: LAB.N 17:15 | PROVIDERS: ATTEND Physician Assistant Medical | DX: N30.00 Acute cystitis without hematuria (principal) | CPT/HCPCS: 87086; 87181 ==

== ENCOUNTER 2022-10-08 06:28 | Day surgery (SDC) | payer MEDICARE, OTHER ==
[2022-10-08] MEDS ORDERED: LACTATED RINGERS 1,000 ML IV ONE (06:31)
[2022-10-08] MEDS ORDERED: PROPOFOL 500 MG/50 ML 500 MG/50 ML VIAL ONE (07:21)
[2022-10-08] MEDS ORDERED: LIDOCAINE-PF 2% 10 ML AMP SUBQ ONE (07:21)
--- NOTE | 2022-10-08 07:31 | ANESTHESIA ---
Pre-Anesthesia VS, & Labs - Diagnosis anemia, hx of polyps - Procedure colonoscopy, egd Vital Signs: Temp Pulse Resp BP Pulse Ox O2 Flow Rate 36.4 C L 87 16 148/83 H 95 10/08/22 06:36 10/08/22 06:36 10/08/22 06:36 10/08/22 06:36 10/08/22 06:36 Height: 5 ft 5 in Weight (kg): 98 kg Body Mass Index: 35.9 BMI Classification: Obese - NPO >8 hours - Is Patient ?: No - Lab Results Current Lab Results: Laboratory Tests 10/08/22 06:50: POC Whole Bld Glucose 129 H Home Medications and Allergies Home Medications: Ambulatory Orders Losartan [Cozaar] 50 mg PO DAILY 10/07/22 Omeprazole Magnesium [Prilosec] 20 mg PO DAILY 10/07/22 Solifenacin Succinate [Vesicare] 10 mg PO DAILY 10/07/22 Simvastatin [Zocor] 75 mg PO DAILY 11/20/16 buPROPion [Wellbutrin Xl] 0 mg PO DAILY 11/20/16 Losartan [Cozaar] 50 mg PO DAILY 10/07/22 Omeprazole Magnesium [Prilosec] 20 mg PO DAILY 10/07/22 Solifenacin Succinate [Vesicare] 10 mg PO DAILY 10/07/22 Allergies/Adverse Reactions: Allergies Allergy/AdvReac Type Severity Reaction Status Date / Time No Known Drug Allergies Allergy Verified 05/03/22 12:25 Anes History & Medical History - Anesthetic History Anesthesia Complications: reports: No previous complications Family history of Anesthesia Complications: Denies Family history of Malignant Hyperthermia: Denies - Medical History Cardiovascular: reports: Hypertension, High cholesterol Pulmonary: reports: Shortness of breath Gastrointestinal: reports: GERD, Colon polyps Urinary: reports: Incontinence, Chronic bladder infection, Kidney stones, Other Musculoskeletal: reports: Osteoarthritis Endocrine/Autoimmune: reports: Type 2 diabetes Skin: reports: None Smoking Status: Former smoker - Surgical History General: reports: Cholecystectomy, Colonoscopy Eyes Ears Nose Throat (EENT): reports: Other Gynecologic: reports: section Exam General: Alert, Oriented x3, Cooperative Dental: WNL Mouth Openin Fingerbreadth Neck Mobility: Normal Mallampati classification: IV Thyromental Distance: less than 4 cm Respiratory: Lungs clear Cardiovascular: Regular rate Plan Anesthesia Type: Total IV Consent for Procedure(s) Verified and Reviewed: Yes Code Status: Attempt Resuscitation ASA classification: 2-Mild systemic disease Is this case an emergency?: No
[2022-10-08] MEDS ORDERED: LACTATED RINGERS 700 ML IV ONE (08:24)
[2022-10-08 09:25] VITALS: BP 110/67
--- NOTE | 2022-10-08 12:43 | ANESTHESIA POST OP EVALUATION ---
Anesthesia Post Eval - Post Anesthesia Eval Vitals: Last Vital Signs Temp 36.2 C L 10/08/22 09:24 Pulse 60 10/08/22 09:24 Resp 16 10/08/22 09:24 BP 110/67 10/08/22 09:24 Pulse Ox 96 10/08/22 09:24 O2 Flow Rate CV Function Including HR & BP: Stable Pain Control: Satisfactory Nausea & Vomiting: Negative Mental Status: Baseline Respiratory Status: Airway Patent Hydration Status: Satisfactory Anesthesia Complications: None
== END 2022-10-08 06:29 | disposition home or self-care (01) ==
LOC: SDS 06:28
PROVIDERS: ATTEND Surgery
PROC: 0DB58ZX Excision of Esophagus, Via Natural or Artificial Opening Endoscopic, Diagnostic (ICD-10-PCS; principal; 2022-10-08 07:30)
PROC: 0DBL8ZZ Excision of Transverse Colon, Via Natural or Artificial Opening Endoscopic (ICD-10-PCS; 2022-10-08 07:30)
DX: D50.9 Iron deficiency anemia, unspecified (principal); K57.30 Diverticulosis of large intestine without perforation or abscess without bleeding; K64.8 Other hemorrhoids; D12.3 Benign neoplasm of transverse colon; K20.90 Esophagitis, unspecified without bleeding; E11.9 Type 2 diabetes mellitus without complications; Z87.891 Personal history of nicotine dependence; E66.9 Obesity, unspecified; Z68.35 Body mass index [BMI] 35.0-35.9, adult
CPT/HCPCS: 43239; 45380; J7120

== ENCOUNTER 2022-10-28 10:31 | Outpatient (CLI) | payer MEDICARE, OTHER ==
--- NOTE | 2022-10-29 12:36 | Mammography Report ---
BILATERAL DIGITAL SCREENING MAMMOGRAM 3D/2D: 10/28/2022 CLINICAL: Routine screening. Comparison is made to exams dated: 05/21/2021 mammogram, 05/04/2020 mammogram, 03/09/2019 mammogram, 02/23/2018 mammogram, 01/27/2017 mammogram, and 12/31/2015 mammogram - [facility]. Both breasts are almost entirely fatty (category a/<25% glandular tissue). There are benign calcifications in both breasts. No significant masses, calcifications, or other findings are seen in either breast. There has been no significant interval change. IMPRESSION: BENIGN There is no mammographic evidence of malignancy. A 1 year screening mammogram is recommended. Based on the Tyrer Cuzick model (a risk assessment model) the patients lifetime risk is 1.7% and her 10 year risk is 0.0%. According to the ACR, ACS, and NCCN guidelines, an annual breast MRI exam julio g with mammogram is recommended if the patients lifetime risk is 20% or greater. This exam was interpreted at Station ID: [id number]. NOTE: For mammograms, a report in lay terms will be sent to the patient. Approximately 15% of breast malignancies will not be visualized mammographically. In the management of a palpable breast mass, a negative mammogram must not discourage biopsy of a clinically suspicious lesion. Electronically Signed By: Corina goins/angi:10/29/2022 08:58:33 letter sent: No_Letter ACR BI-RADS Category 2: Benign Finding(s) 3342F PARENCHYMAL PATTERN: (F) - The breast(s) demonstrate(s) diffuse fatty replacement. BI-RADS CATEGORY: (2) - 2 Mammogram [id number] 1 year screening LATERALITY: (B)
== END 2022-10-28 10:32 | disposition home or self-care (01) ==
LOC: DI.N 10:31
DX: Z12.31 Encounter for screening mammogram for malignant neoplasm of breast (principal)

== ENCOUNTER 2022-12-09 09:48 | Outpatient (CLI) | payer MEDICARE, OTHER ==
[2022-12-09 12:59] LABS: ALBUMIN 3.8 g/dL (3.2-5.5); ALBUMIN/GLOBULIN RATIO 1.2 (1.0-2.2); ALKALINE PHOSPHATASE 70 IU/L (42-121); ALT ALANINE AMINOTRANSFERASE 33 IU/L (10-60); AST ASPARTATE AMINOTRANSFERASE 43 IU/L (10-42); BILIRUBIN,TOTAL 0.6 mg/dL (0.2-1.0); BUN - BLOOD UREA NITROGEN 15 mg/dL (6-20); CALCIUM 8.9 mg/dL (8.5-10.3); CARBON DIOXIDE - CO2 28 mmol/L (21-32); CHLORIDE 105 mmol/L (101-111); CHOL/HDL RATIO 3.1 (<4.4); CHOLESTEROL 200 mg/dL; GFR - MDRD 54 (>89); GLUCOSE 152 mg/dL (70-100); HDL CHOLESTEROL 64 mg/dL; LDL CHOLESTEROL,CALCULATED 107 mg/dL; LDL/HDL RATIO 1.7 (<4.4); POTASSIUM 4.1 mmol/L (3.5-5.0); SODIUM 137 mmol/L (135-145); TOTAL PROTEIN 7.1 g/dL (6.7-8.2); TRIGLYCERIDES 147 mg/dL; VLDL CHOLESTEROL 29 mg/dL
[2022-12-09 14:27] LABS: ESTIMATED AVERAGE GLUCOSE 157 mg/dL (70-100); HEMOGLOBIN A1c% 7.1 % (4.27-6.07)
== END 2022-12-09 09:49 | disposition home or self-care (01) ==
LOC: LAB.N 09:48
PROVIDERS: ATTEND Physician Assistant Medical
DX: E11.9 Type 2 diabetes mellitus without complications (principal)
CPT/HCPCS: 36415; 80053; 80061; 83036; 83721

== ENCOUNTER 2022-12-16 08:00 | Outpatient (CLI) | payer MEDICARE, OTHER ==
--- NOTE | 2022-12-16 16:32 | XRAY Report ---
PROCEDURE: Wrist 3 View LT INDICATIONS: LEFT WRIST ORIF TECHNIQUE: 3 views of the wrist were acquired. COMPARISON: None. FINDINGS: Bones: ORIF of the distal radius is present. Hardware is intact without evidence of hardware fractur e or periprosthetic lucency to suggest loosening. There is good anatomic alignment. Moderate first CM C arthritic narrowing is present. No suspicious bony lesions. Soft tissues: No suspicious soft tissue calcifications or masses. IMPRESSION: Distal radial ORIF is present with good anatomic alignment as well as intact hardware. Reviewed by: Karina Mcintyre MD on 12/16/2022 4:31 PM PDT Approved by: Karina Mcintyre MD on 12/16/2022 4:31 PM PDT Station ID: [id number]
== END 2022-12-16 23:59 | disposition home or self-care (01) ==
LOC: DI.WOS 08:00
PROVIDERS: ATTEND Orthopaedic Surgery
DX: S62.92XD Unspecified fracture of left hand, subsequent encounter for fracture with routine healing (principal)

== ENCOUNTER 2023-01-22 08:00 | Outpatient (CLI) | payer MEDICARE, OTHER ==
--- NOTE | 2023-01-22 16:48 | XRAY Report ---
PROCEDURE: Wrist 3 View LT INDICATIONS: LEFT WRIST ORIF TECHNIQUE: 3 views of the wrist were acquired. COMPARISON: 12/16/2022 FINDINGS: Bones: Similar alignment of the previously demonstrated distal radius fracture post plate and screw fixation. Hardware appears intact. Fracture plane remains visible. Soft tissues: No suspicious soft tissue calcifications . IMPRESSION: Similar alignment of the distal radius fracture post fixation. Reviewed by: Joe Ashley MD on 01/22/2023 4:46 PM PDT Approved by: Joe Ashley MD on 01/22/2023 4:46 PM PDT Station ID: [id number]
== END 2023-01-22 23:59 | disposition home or self-care (01) ==
LOC: DI.WOS 08:00
PROVIDERS: ATTEND Orthopaedic Surgery
DX: S52.532D Colles' fracture of left radius, subsequent encounter for closed fracture with routine healing (principal)

== ENCOUNTER 2023-02-02 17:07 | Outpatient (CLI) | payer MEDICARE, OTHER ==
--- NOTE | 2023-02-03 16:04 | XRAY Report ---
PROCEDURE: Ribs w/PA Chest LT INDICATIONS: RIB PAIN,LEFT SIDED TECHNIQUE: 3 views of the left ribs were acquired, along with a single view chest. COMPARISON: None. FINDINGS: Surgical changes and devices: None. Bones and chest wall: There is slight irregularity of the lateral most aspect of what appears to be the left rib, not well seen on all views. No suspicious bony lesions. Overlying soft tissues appear unremarkable. Lungs and pleura: No pleural effusions or pneumothorax. Lungs appear clear. Mediastinum: Mediastinal contours appear normal. Heart size is normal. IMPRESSION: Questionable artifact versus nondisplaced fracture of the lateral eighth rib, not well seen on all vi ews. Recommend correlation point tenderness. Reviewed by: Karina Mcintyre MD on 02/03/2023 4:02 PM PDT Approved by: Karina Mcintyre MD on 02/03/2023 4:02 PM PDT Station ID: [id number]
== END 2023-02-02 17:08 | disposition home or self-care (01) ==
LOC: DI 17:07
PROVIDERS: ATTEND Nurse Practitioner
DX: R07.81 Pleurodynia (principal)

== ENCOUNTER 2023-03-09 14:45 | Outpatient (CLI) | payer MEDICARE, OTHER | END 2023-03-09 15:00 | disposition home or self-care (01) | LOC: LAB.N 14:45 | PROVIDERS: ATTEND Physician Assistant Medical | DX: N30.00 Acute cystitis without hematuria (principal) | CPT/HCPCS: 87086; 87181 ==

== ENCOUNTER 2023-05-07 08:49 | Outpatient (CLI) | payer MEDICARE, OTHER ==
[2023-05-07 12:12] LABS: ESTIMATED AVERAGE GLUCOSE 169 mg/dL (70-100); HEMOGLOBIN A1c% 7.5 % (4.27-6.07)
[2023-05-07 12:37] LABS: ALBUMIN 4.1 g/dL (3.2-5.5); ALBUMIN/GLOBULIN RATIO 1.5 (1.0-2.2); ALKALINE PHOSPHATASE 80 IU/L (42-121); ALT ALANINE AMINOTRANSFERASE 21 IU/L (10-60); AST ASPARTATE AMINOTRANSFERASE 28 IU/L (10-42); BILIRUBIN,TOTAL 0.5 mg/dL (0.2-1.0); BUN - BLOOD UREA NITROGEN 15 mg/dL (6-20); CALCIUM 9.6 mg/dL (8.5-10.3); CARBON DIOXIDE - CO2 29 mmol/L (21-32); CHLORIDE 102 mmol/L (101-111); CHOLESTEROL 164 mg/dL; CREATININE 1.1 mg/dL (0.6-1.3); GFR - MDRD 48 (>89); GLUCOSE 187 mg/dL (74-104); HDL CHOLESTEROL 54 mg/dL; LDL CHOLESTEROL,CALCULATED 60 mg/dL; LDL/HDL RATIO 1.1 (<4.4); POTASSIUM 4.3 mmol/L (3.5-4.5); SODIUM 139 mmol/L (135-145); TOTAL PROTEIN 6.9 g/dL (6.4-8.9); TRIGLYCERIDES 250 mg/dL (48-352); VLDL CHOLESTEROL 50 mg/dL
== END 2023-05-07 08:50 | disposition home or self-care (01) ==
LOC: LAB.N 08:49
PROVIDERS: ATTEND Physician Assistant Medical
DX: E11.9 Type 2 diabetes mellitus without complications (principal)
CPT/HCPCS: 36415; 80053; 80061; 83036; 83721

== ENCOUNTER 2023-07-31 08:24 | Outpatient (CLI) | payer MEDICARE, OTHER ==
[2023-07-31 13:23] LABS: CALCIUM 9.9 mg/dL (8.5-10.3); CREATININE 1.1 mg/dL (0.6-1.3); POTASSIUM 3.9 mmol/L (3.5-4.5)
[2023-07-31 13:29] LABS: ESTIMATED AVERAGE GLUCOSE 192 mg/dL (70-100); HEMOGLOBIN A1c% 8.3 % (4.27-6.07)
== END 2023-07-31 08:25 | disposition home or self-care (01) ==
LOC: LAB.N 08:24
PROVIDERS: ATTEND Physician Assistant Medical
DX: E11.9 Type 2 diabetes mellitus without complications (principal)
CPT/HCPCS: 36415; 80048; 83036

== ENCOUNTER 2023-11-04 10:24 | Outpatient (CLI) | payer MEDICARE, OTHER ==
[2023-11-04 12:34] LABS: ESTIMATED AVERAGE GLUCOSE 212 mg/dL (70-100)
[2023-11-04 12:55] LABS: ALBUMIN 4.2 g/dL (3.2-5.5); ALBUMIN/GLOBULIN RATIO 1.4 (1.0-2.2); ALKALINE PHOSPHATASE 70 IU/L (42-121); ALT ALANINE AMINOTRANSFERASE 26 IU/L (10-60); AST ASPARTATE AMINOTRANSFERASE 30 IU/L (10-42); BILIRUBIN,TOTAL 0.5 mg/dL (0.2-1.0); BUN - BLOOD UREA NITROGEN 21 mg/dL (6-20); CALCIUM 9.8 mg/dL (8.5-10.3); CARBON DIOXIDE - CO2 27 mmol/L (21-32); CHLORIDE 102 mmol/L (101-111); CHOL/HDL RATIO 2.6 (<4.4); CHOLESTEROL 143 mg/dL; CREATININE 1.1 mg/dL (0.6-1.3); GFR - MDRD 48 (>89); GLUCOSE 216 mg/dL (74-104); HDL CHOLESTEROL 56 mg/dL; LDL CHOLESTEROL,CALCULATED 39 mg/dL; LDL/HDL RATIO 0.7 (<4.4); POTASSIUM 4.2 mmol/L (3.5-4.5); SODIUM 136 mmol/L (135-145); TOTAL PROTEIN 7.3 g/dL (6.4-8.9); TRIGLYCERIDES 240 mg/dL (48-352); VLDL CHOLESTEROL 48 mg/dL
== END 2023-11-04 10:25 | disposition home or self-care (01) ==
LOC: LAB.N 10:24
PROVIDERS: ATTEND Physician Assistant Medical
DX: E11.9 Type 2 diabetes mellitus without complications (principal)
CPT/HCPCS: 36415; 80053; 80061; 83036; 83721

== ENCOUNTER 2024-02-05 10:12 | Outpatient (CLI) | payer MEDICARE, OTHER ==
[2024-02-05 14:01] LABS: CALCIUM 9.3 mg/dL (8.5-10.3); CREATININE 1.2 mg/dL (0.6-1.3); POTASSIUM 4.4 mmol/L (3.5-4.5)
[2024-02-05 14:14] LABS: ESTIMATED AVERAGE GLUCOSE 186 mg/dL (70-100); HEMOGLOBIN A1c% 8.1 % (4.27-6.07)
== END 2024-02-05 10:13 | disposition home or self-care (01) ==
LOC: LAB.N 10:12
PROVIDERS: ATTEND Physician Assistant Medical
DX: E11.9 Type 2 diabetes mellitus without complications (principal)
CPT/HCPCS: 36415; 80048; 83036

== ENCOUNTER 2024-03-08 10:36 | Outpatient (CLI) | payer MEDICARE, OTHER ==
--- NOTE | 2024-03-09 11:00 | Mammography Report ---
BILATERAL DIGITAL SCREENING MAMMOGRAM 3D/2D: 03/08/2024 CLINICAL: Routine screening. Comparison is made to exams dated: 10/28/2022 mammogram, 05/21/2021 mammogram, 05/04/2020 mammogram, 02/21 mammogram, 02/23/2018 mammogram, and 01/27/2017 mammogram - [facility]. Both breasts are almost entirely fatty (category a/<25% glandular tissue). There is an asymmetry in the right breast posterior depth lateral region seen on the craniocaudal vie w only. There is an asymmetry in the left breast posterior depth inferior region seen on the mediolateral obl ique view only. No other significant masses or calcifications are seen in either breast. IMPRESSION: INCOMPLETE: NEEDS ADDITIONAL IMAGING EVALUATION The asymmetry in the right breast posterior depth lateral region seen on the craniocaudal view only i s indeterminate. Additional views with possible ultrasound are recommended. The asymmetry in the left breast posterior depth inferior region seen on the mediolateral oblique vie w only is indeterminate. Additional views with possible ultrasound are recommended. Based on the Tyrer Cuzick model (a risk assessment model) the patient's lifetime risk is 1.5% and her 10 year risk is 0.0%. According to the ACR, ACS, and NCCN guidelines, an annual breast MRI exam julio g with mammogram is recommended if the patient's lifetime risk is 20% or greater. This exam was interpreted at Station ID: [id number]. NOTE: For mammograms, a report in lay terms will be sent to the patient. Approximately 15% of breast malignancies will not be visualized mammographically. In the management of a palpable breast mass, a negative mammogram must not discourage biopsy of a clinically suspicious lesion. Electronically Signed By: Mike Richards M.D. lc/:03/08/2024 11:23:46 ACR BI-RADS Category 0: Incomplete 3340F PARENCHYMAL PATTERN: (F) - The breast(s) demonstrate(s) diffuse fatty replacement. BI-RADS CATEGORY: (0) - 0 Mammo and US [id number] Immediate follow-up LATERALITY: (B)
== END 2024-03-08 10:37 | disposition home or self-care (01) ==
LOC: DI.N 10:36
DX: Z12.31 Encounter for screening mammogram for malignant neoplasm of breast (principal); R92.8 Other abnormal and inconclusive findings on diagnostic imaging of breast

== ENCOUNTER 2024-03-25 10:46 | Outpatient (CLI) | payer MEDICARE, OTHER ==
--- NOTE | 2024-03-28 08:24 | Mammography Report ---
BILATERAL DIGITAL DIAGNOSTIC MAMMOGRAM 3D/2D WITH SPOT COMPRESSION: 03/25/2024 CLINICAL: Patient returns today to evaluate asymmetries in bilateral breasts. Comparison is made to exams dated: 03/08/2024 mammogram, 10/28/2022 mammogram, 05/21/2021 mammogram, 04/24 mammogram, 03/09/2019 mammogram, and 02/23/2018 mammogram - [facility]. Both breasts are almost entirely fatty (category a/<25% glandular tissue). There is a benign asymmetry in the right breast posterior depth lateral region seen on the craniocaud al view only. This is not seen in additional views. There is an asymmetry in the left breast posterior depth inferior region seen on the mediolateral obl ique view only. This is not seen in additional views. No other significant masses or calcifications are seen in either breast. IMPRESSION: BENIGN There is no mammographic evidence of malignancy. Right breast asymmetry is not confirmed. Left breast asymmetry is consistent with fibroglandular tissue and is benign. A 1 year screening mammogram is recommended. Exam findings were conveyed to the patient. Based on the Tyrer Cuzick model (a risk assessment model) the patient's lifetime risk is 1.2% and her 10 year risk is 0.0%. According to the ACR, ACS, and NCCN guidelines, an annual breast MRI exam julio g with mammogram is recommended if the patient's lifetime risk is 20% or greater. This exam was interpreted at Station ID: [id number]. NOTE: For mammograms, a report in lay terms will be sent to the patient. Approximately 15% of breast malignancies will not be visualized mammographically. In the management of a palpable breast mass, a negative mammogram must not discourage biopsy of a clinically suspicious lesion. Electronically Signed By: Max Green M.D. slc/:03/25/2024 11:39:23 ACR BI-RADS Category 2: Benign Finding(s) 3342F PARENCHYMAL PATTERN: (F) - The breast(s) demonstrate(s) diffuse fatty replacement. BI-RADS CATEGORY: (2) - 2 RECOMMENDATION: (ANNUAL) - Recommend routine annual screening mammography. [id number] 1 year screening LATERALITY: (B)
== END 2024-03-25 10:47 | disposition home or self-care (01) ==
LOC: DI 10:46
PROVIDERS: ATTEND Physician Assistant Medical
DX: R92.8 Other abnormal and inconclusive findings on diagnostic imaging of breast (principal)

== ENCOUNTER 2024-05-10 10:15 | Outpatient (CLI) | payer MEDICARE, OTHER ==
[2024-05-10 12:54] LABS: ALBUMIN 4.1 g/dL (3.2-5.5); ALBUMIN/GLOBULIN RATIO 1.6 (1.0-2.2); ALKALINE PHOSPHATASE 65 IU/L (42-121); ALT ALANINE AMINOTRANSFERASE 22 IU/L (10-60); AST ASPARTATE AMINOTRANSFERASE 27 IU/L (10-42); BILIRUBIN,TOTAL 0.6 mg/dL (0.2-1.0); BUN - BLOOD UREA NITROGEN 13 mg/dL (6-20); CALCIUM 9.1 mg/dL (8.5-10.3); CARBON DIOXIDE - CO2 28 mmol/L (21-32); CHLORIDE 105 mmol/L (101-111); CHOL/HDL RATIO 2.5 (<4.4); CHOLESTEROL 145 mg/dL; CREATININE 1.1 mg/dL (0.6-1.3); GFR - MDRD 48 (>89); GLUCOSE 181 mg/dL (74-104); HDL CHOLESTEROL 58 mg/dL; LDL CHOLESTEROL,CALCULATED 48 mg/dL; LDL/HDL RATIO 0.8 (<4.4); POTASSIUM 4.3 mmol/L (3.5-4.5); SODIUM 138 mmol/L (135-145); TOTAL PROTEIN 6.7 g/dL (6.4-8.9); TRIGLYCERIDES 196 mg/dL; VLDL CHOLESTEROL 39 mg/dL
[2024-05-10 13:05] LABS: ESTIMATED AVERAGE GLUCOSE 186 mg/dL (70-100); HEMOGLOBIN A1c% 8.1 % (4.27-6.07)
== END 2024-05-10 10:16 | disposition home or self-care (01) ==
LOC: LAB.N 10:15
PROVIDERS: ATTEND Physician Assistant Medical
DX: E11.9 Type 2 diabetes mellitus without complications (principal)
CPT/HCPCS: 36415; 80053; 80061; 83036; 83721